=== PATIENT | male | born 1945 ===

== ENCOUNTER → 2018-10-26 19:40 | Outpatient (REF) | payer BC, SELFPAY ==
[2018-10-26 20:17] LABS: Estimated Glomerular Filt Rate 59.5 mL/min (>60)
== END ==
LOC: LAB 19:40
PROVIDERS: Visit Provider Family Medicine
DX: R19.09 Other intra-abdominal and pelvic swelling, mass and lump (principal)
CPT/HCPCS: 36415; 82565